=== PATIENT | male | born 1980 | race African-American/Black ===

== ENCOUNTER 2019-08-16 15:29 | Emergency (ER) | payer OTHER ==
[~2019-08-16] VITALS: Ht 175.3 cm; Wt 88.0 kg
[2019-08-16 15:54] LABS: Urine Bacteria NONE SEEN /hpf (None Seen); Urine Blood Negative /uL (Negative); Urine Mucus FEW (None Seen); Urine Specific Gravity 1.009 (1.001-1.035); Urine WBC <1 /hpf (0 - 3)
[2019-08-16 16:14] LABS: Basophils # (auto) 0 10 ^3/uL (0-0.2); Basophils % (auto) 0.5 % (0.0-2.0); Eosinophils # (auto) 0.2 10 ^3/uL (0-0.8); Lymphocytes # (auto) 2.1 10 ^3/uL (0.4-5.4); Monocytes # (auto) 0.5 10 ^3/uL (0-1.3); Neutrophils # (auto) 4.7 10 ^3/uL (1.6-8.6); Nucleated Red Blood Cells % 0.2 %; White Blood Cell 7.5 10^3/uL (4.4-10.8)
[2019-08-16 16:16] LABS: Eosinophils % (auto) 2.4 % (0.0-7.0); Hematocrit 45.9 % (41.0-53.0); Lymphocytes % (auto) 27.4 % (10.0-50.0); Mean Corpuscular Hemoglobin 26.4 pg (28.0-32.0); Mean Corpuscular Hgb Conc. 32.6 g/dL (32.0-36.0); Monocytes % (auto) 6.8 % (0.0-12.0); Neutrophils % (auto) 62.9 % (37.0-80.0); Platelet Count (auto) 263 10^3/uL (140-450); Red Blood Cells 5.67 10^6/uL (4.5-5.90); Red Cell Distribution Width 13.9 % (11.8-14.3)
[2019-08-16 16:29] LABS: Albumin 3.8 g/dL (3.4-5.0); Calcium 9.2 mg/dL (8.5-10.1); Potassium 3.7 mmol/L (3.5-5.1)
[2019-08-16 16:32] LABS: Bilirubin, Total 0.6 mg/dL (0.2-1.0); Total Protein 7.8 g/dL (6.4-8.2)
[2019-08-16 18:14] VITALS: BP 148/87
== END 2019-08-16 18:15 | disposition home or self-care (01) ==
LOC: ER 15:29
DX: K29.70 Gastritis, unspecified, without bleeding (principal); R91.1 Solitary pulmonary nodule; Z71.41 Alcohol abuse counseling and surveillance of alcoholic; Z88.0 Allergy status to penicillin; Z88.1 Allergy status to other antibiotic agents; Z88.8 Allergy status to other drugs, medicaments and biological substances
CPT/HCPCS: 36415; 74176; 80053; 81001; 85025

== ENCOUNTER 2019-09-23 18:38 | Emergency (ER) | payer OTHER ==
[~2019-09-23] VITALS: Ht 175.3 cm; Wt 93.0 kg
[2019-09-23 20:54] VITALS: BP 136/86
== END 2019-09-23 20:57 | disposition home or self-care (01) ==
LOC: ER 18:38
DX: R91.1 Solitary pulmonary nodule (principal); R10.9 Unspecified abdominal pain; K21.9 Gastro-esophageal reflux disease without esophagitis; E78.5 Hyperlipidemia, unspecified; I10 Essential (primary) hypertension
CPT/HCPCS: 74176

== ENCOUNTER 2019-11-12 06:23 | Emergency (ER) | payer OTHER ==
[~2019-11-12] VITALS: Ht 175.3 cm; Wt 90.7 kg
[2019-11-12 06:30] VITALS: BP 129/88
== END 2019-11-12 07:46 | disposition home or self-care (01) ==
LOC: ER 06:23
DX: M62.838 Other muscle spasm (principal); R51 Headache; K21.9 Gastro-esophageal reflux disease without esophagitis; E78.5 Hyperlipidemia, unspecified; I10 Essential (primary) hypertension

== ENCOUNTER 2019-12-24 19:12 | Emergency (ER) | payer OTHER ==
[~2019-12-24] VITALS: Ht 175.3 cm; Wt 89.4 kg
[2019-12-24 19:34] VITALS: BP 148/93
== END 2019-12-24 22:27 | disposition home or self-care (01) ==
LOC: ER 19:12
DX: S09.8XXA Other specified injuries of head, initial encounter (principal); R09.81 Nasal congestion; W11.XXXA Fall on and from ladder, initial encounter; Y93.89 Activity, other specified; Y92.89 Other specified places as the place of occurrence of the external cause; Y99.8 Other external cause status
CPT/HCPCS: 70450; 70486; 72125

== ENCOUNTER 2021-09-12 18:31 | Emergency (ER) | payer OTHER ==
[~2021-09-12] VITALS: Ht 175.3 cm; Wt 90.7 kg
[2021-09-12 19:37] VITALS: BP 130/80
[2021-09-12] MEDS ORDERED: ACETAMINOPHEN 325 MG TAB PO ONE (19:45)
[2021-09-12] MEDS ORDERED: IBUP600T28 PO (23:06)
== END 2021-09-12 23:57 | disposition home or self-care (01) ==
LOC: ER 18:31
DX: U07.1 COVID-19 (principal); I10 Essential (primary) hypertension; E11.9 Type 2 diabetes mellitus without complications; E78.5 Hyperlipidemia, unspecified; K21.9 Gastro-esophageal reflux disease without esophagitis; Z79.1 Long term (current) use of non-steroidal anti-inflammatories (NSAID); Z88.0 Allergy status to penicillin; Z88.8 Allergy status to other drugs, medicaments and biological substances
CPT/HCPCS: 36415; 87804

== ENCOUNTER 2022-11-13 13:58 | Emergency (ER) | payer MEDICAID, OTHER ==
[~2022-11-13] VITALS: Ht 175.3 cm; Wt 86.7 kg
[~2022-11-13 13:58] MED LIST: IBUP1TAB5 PO
[2022-11-13 15:05] VITALS: BP 138/98; PULSE 78; RESP 16; TEMP 98.1; O2SAT 96
[2022-11-13] MEDS ORDERED: METH-1181 PO (15:53)
[2022-11-13] MEDS ORDERED: IBUP-1454 PO (15:53)
== END 2022-11-13 16:01 | disposition home or self-care (01) ==
LOC: ER 13:58
DX: M79.10 Myalgia, unspecified site (principal); I10 Essential (primary) hypertension; E11.9 Type 2 diabetes mellitus without complications; E78.5 Hyperlipidemia, unspecified; K21.9 Gastro-esophageal reflux disease without esophagitis; F15.90 Other stimulant use, unspecified, uncomplicated; Z88.0 Allergy status to penicillin; Z88.1 Allergy status to other antibiotic agents; Z88.8 Allergy status to other drugs, medicaments and biological substances; Z79.1 Long term (current) use of non-steroidal anti-inflammatories (NSAID); Z79.899 Other long term (current) drug therapy

== ENCOUNTER 2023-01-14 22:24 | Emergency (ER) | payer OTHER ==
[~2023-01-14] VITALS: Ht 175.3 cm; Wt 92.5 kg
[~2023-01-14 22:24] MED LIST changes: +IBUP-1454 PO; +METH-1181 PO
[2023-01-15] MEDS ORDERED: IBUP-1456 PO (03:15)
[2023-01-15] MEDS ORDERED: KETOROLAC TROMETH 60MG/2ML VIAL IM ONE (03:15)
[2023-01-15 04:25] VITALS: BP 132/75; PULSE 76; RESP 18; TEMP 97.8; O2SAT 99
== END 2023-01-15 05:00 | disposition home or self-care (01) ==
LOC: ER 22:29
DX: S93.691A Other sprain of right foot, initial encounter (principal); I10 Essential (primary) hypertension; E78.5 Hyperlipidemia, unspecified; K21.9 Gastro-esophageal reflux disease without esophagitis; F15.90 Other stimulant use, unspecified, uncomplicated; Z87.891 Personal history of nicotine dependence; Z88.0 Allergy status to penicillin; Z88.8 Allergy status to other drugs, medicaments and biological substances; Z79.1 Long term (current) use of non-steroidal anti-inflammatories (NSAID); Z79.899 Other long term (current) drug therapy; X58.XXXA Exposure to other specified factors, initial encounter; Y93.89 Activity, other specified; Y92.89 Other specified places as the place of occurrence of the external cause; Y99.8 Other external cause status
CPT/HCPCS: 73630; 96372; 99283; J1885

== ENCOUNTER 2023-11-12 07:02 | Emergency (ER) | payer OTHER ==
[~2023-11-12] VITALS: Ht 175.3 cm; Wt 86.4 kg
[~2023-11-12 07:02] MED LIST changes: +IBUP-1456 PO
[2023-11-12 07:31] LABS: Urine Bacteria None Seen /hpf (None Seen)
[2023-11-12 07:43] LABS: Urine Blood Negative /uL (Negative); Urine Clarity Clear (Clear); Urine Color Light-Yellow (Yellow); Urine Protein, UAD Negative (Negative); Urine Specific Gravity 1.028 (1.001-1.035); Urine Urobilinogen Normal (Negative); Urine WBC 1 /hpf (0 - 3)
[2023-11-12 07:50] VITALS: BP 133/82; PULSE 63; RESP 17; TEMP 98.3; O2SAT 98
[2023-11-12] MEDS ORDERED: DOXY-286 PO (08:18)
[2023-11-12] MEDS: cefTRIAXone SOD 1,000 MG VL IM ONE (08:43)
[2023-11-13 12:06] LABS: Chlamydia Trachomatis, NAA Negative (Negative); Neisseria gonorrhoeae, NAA Negative (Negative)
== END 2023-11-12 08:47 | disposition home or self-care (01) ==
LOC: ER 07:02
DX: N34.2 Other urethritis (principal); I10 Essential (primary) hypertension; E78.5 Hyperlipidemia, unspecified; K21.9 Gastro-esophageal reflux disease without esophagitis; F15.90 Other stimulant use, unspecified, uncomplicated; Z87.891 Personal history of nicotine dependence; Z88.0 Allergy status to penicillin; Z88.8 Allergy status to other drugs, medicaments and biological substances; Z79.899 Other long term (current) drug therapy
CPT/HCPCS: 81001; 87491; 87591; 96372; 99283; J0696

== ENCOUNTER 2024-04-08 09:04 | Emergency (ER) | payer MEDICAID, OTHER ==
[~2024-04-08] VITALS: Ht 175.3 cm; Wt 90.7 kg
[~2024-04-08 09:04] MED LIST changes: +DOXY-286 PO
[2024-04-08 09:46] VITALS: BP 138/88; PULSE 88; RESP 18; TEMP 98.7; O2SAT 98
[2024-04-08 09:48] LABS: Urine Bacteria None Seen /hpf (None Seen)
[2024-04-08 10:17] LABS: Urine Blood Negative /uL (Negative); Urine Clarity Clear (Clear); Urine Color Light-Yellow (Yellow); Urine Mucus FEW (None Seen); Urine Protein, UAD Negative (Negative); Urine Specific Gravity 1.027 (1.001-1.035); Urine Squamous Epithelial Cell FEW /hpf (<5); Urine Urobilinogen Normal (Negative); Urine WBC <1 /hpf (0 - 3)
[2024-04-08] MEDS ORDERED: CYCL-839 PO (10:25)
[2024-04-08] MEDS ORDERED: IBUP1TAB5 PO (10:25)
[2024-04-08] MEDS ORDERED: DOXY-286 PO (10:25)
--- NOTE | 2024-04-08 10:27 | ED.PDOC ---
General HPI Comments 43-year-old male patient presents to the clinic for clear penile discharge for 2 weeks. Patient denies any redness or irritation to the penis. Patient reports that he has some burning with urination. Patient reports that he has had these symptoms previously and was treated in the emergency room. Patient also has complaints regarding pain to the right lateral portion of the neck and right upper back. Patient states the pain started 3 weeks ago. 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 Patient denies any significant injury or trauma. Patient reports that the pain comes and goes. Patient took a muscle relaxer which had to decrease the pain Chief Complaint: Penile Discharge Time Seen by MD: 09:31 Primary Care Provider: GABRIELLA Reviewed notes: Nurses Notes, Medications Allergies: Coded Allergies: Bacitracin (Verified Allergy, Severe, 08/16/19) Neomycin (Verified Allergy, Severe, 08/16/19) Penicillins (Verified Allergy, Severe, 08/16/19) Polymyxin B (Verified Allergy, Severe, 08/16/19) Home Meds Active Scripts Ibuprofen Micronized (Ibuprofen) 600 Mg Tab, 600 MG PO TID PRN for 30 Days, #90 TAB 0 Refills Prov:ARIELA SCHAFERANNE [employer] 04/08/24 Doxycycline Hyclate (DOXYCYCLINE HYCLATE) 100 Mg Tab, 1 TAB PO BID for 10 Days, #20 TAB 0 Refills Prov:HANHFRED [employer] 04/08/24 Cyclobenzaprine Hcl (Cyclobenzaprine Hcl) 10 Mg Tab, 10 MG PO DAILY PRN for 30 Days, #30 TAB 0 Refills Prov:FRED SCHAFER [employer] 04/08/24 Doxycycline Hyclate (DOXYCYCLINE HYCLATE) 100 Mg Tab, 1 TAB PO BID for 7 Days, #14 TAB 0 Refills Prov:PAVAN STACK NP 11/12/23 Ibuprofen (Ibuprofen) 800 Mg Tab, 1 TAB PO TID PRN, #30 TAB 0 Refills Prov:SUSIE HOFFMAN 01/15/23 Methocarbamol (Methocarbamol) 500 Mg Tab, 500 MG PO QID for 10 Days, #40 TAB 0 Refills Prov:PAVAN STACK NP 11/13/22 Ibuprofen (Ibuprofen) 600 Mg Tab, 600 MG PO TID for 14 Days, #42 TAB 0 Refills Prov:PAVAN STACK NP 11/13/22 Ibuprofen Micronized (Ibuprofen) 600 Mg Tab, 600 MG PO Q6HP for 10 Days, #40 TAB 0 Refills Prov:TETO GAMING MD 09/12/21 Mode of Arrival: Ambulatory Past Medical History PAST MEDICAL HISTORY: GERD, High Lipids, HTN Surgical History: Denies all surgeries Family History Family History: Reviewed,noncontributory to illness, Unknown Social History Smoker: Other Alcohol: Occasionally Drugs: Marijuana Lives In: Home Constitutional: denies: chills, diaphoresis, fatigue, fever, malaise, sweats, weakness, others EENTM: denies: blurred vision, double vision, ear bleeding, ear discharge, ear drainage, ear pain, ear ringing, eye pain, eye redness, hearing loss, mouth pain, mouth swelling, nasal discharge, nose bleeding, nose congestion, nose pain, photophobia, tearing, throat pain, throat swelling, voice changes, others Respiratory: denies: cough, hemoptysis, orthopnea, SOB at rest, shortness of breath, SOB with excertion, stridor, wheezing, others Cardiovascular: denies: chest pain, dizzy spells, diaphoresis, Dyspnea on exertion, edema, irregular heart beat, left arm pain, lightheadedness, palpitations, PND, syncope, others Gastrointestinal: denies: abdomen distended, abdominal pain, blood streaked bowels, constipated, diarrhea, dysphagia, difficulty swallowing, hematemesis, melena, nausea, poor appetite, poor fluid intake, rectal bleeding, rectal pain, vomiting, others Genitourinary: reports: penile discharge, penile sore Neurological: denies: dizziness, fainting, headache, left sided numbness, left sided weakness, numbness, paresthesia, pre-existing deficit, right sided numbness, right sided weakness, seizure, speech problems, tingling, tremors, weakness, others Musculoskeletal: reports: joint pain, muscle pain Integumetry: denies: bruises, change in color, change in hair/nails, dryness, laceration, lesions, lumps, rash, wounds, others Allergic/Immunocompromised: denies: Difficulty Healing, Frequent Infections, Hives, Itching, others Hematologic/Lymphatic: denies: anemia, blood clots, easy bleeding, easy bruising, swollen glands, others Endocrine: denies: excessive hunger, excessive sweating, excessive thirst, excessive urination, flushing, intolerance to cold, intolerance to heat, unexplained weight gain, unexplained weight loss, others Psychiatric: denies: anxiety, bipolar disorder, depression, hopeless, panic disorder, schizophrenia, sleepless, suicidal, others All Other Systems: Reviewed and Negative Physical Exam General Appearance: No Apparent Distress, Normal HEENT: Normal ENT Inspection, Pharynx Normal, TMs Normal Neck: Full Range of Motion, Non-Tender, Normal, Normal Inspection Respiratory: Chest Non-Tender, Lungs Clear, No Accessory Muscle Use, No Res piratory Distress, Normal Breath Sounds Cardiovascular: No Edema, No JVD, No Murmur, No Gallop, Normal Peripheral Pulses, Regular Rate/Rhythm Breast Exam: Deferred Gastrointestinal: No Organomegaly, Non Tender, No Pulsatile Mass, Normal Bowel Sounds, Soft Genitalia: Normal Pelvic: Deferred Rectal: Deferred Extremities: No calf tenderness, Normal capillary refill, Normal inspection, Normal range of motion, Non-tender, No pedal edema Musculoskeletal : Location: Right Extremity Location: Shoulder (Right shoulder pain tenderness radiating to the right upper back. Full range of motion.) Apperance: Normal, Tenderness: Mild Neurologic: Alert, hamper maker machine II-XII nml as Tested, No Motor Deficits, Normal Affect, Normal Mood, No Sensory Deficits Cerebellar Function: Normal Reflexes: Normal Skin: Dry, Normal Color, Warm Lymphatic: No Adenopathy Was a procedure done? Was a procedure done?: No Differential Diagnosis Kidney stone (Female): N/A Kidney stone (Male): N/A Penile/Scrotal: Epidiymitis, Prostatitis, STD, UTI Urinary Problem (Male): N/A Urinary Problem (Female): N/A X-Ray, Labs, Meds, VS Vital Signs Date Time Temp Pulse Resp B/P (MAP) Pulse Ox O2 Delivery O2 Flow Rate FiO2 04/08/24 09:46 88 18 98 Room Air 04/08/24 09:46 98.7 88 18 138/88 (105) 98 98.7 04/08/24 09:25 98.8 84 18 139/88 (105) 97 Lab Test 04/08/24 09:23 Range/Units Urine Color Light-yellow Yellow Urine Clarity Clear Clear Urine pH 6.0 5.0-9.0 Urine Specific [place] 1.027 1.001-1.035 Urine Protein Negative Negative Urine Ketones Negative Negative Urine Blood Negative Negative /uL Urine Nitrite Negative Negative Urine Bilirubin Negative Negative Urine Urobilinogen Normal Negative mg/dL Urine Leukocyte Esterase Negative Negative /uL Urine RBC <1 0 - 3 /hpf Urine WBC <1 0 - 3 /hpf Urine Squamous Epithelial Cells Few <5 /hpf Urine Bacteria None seen None Seen /hpf Urine Mucus Few None Seen Urine Glucose Normal Normal mg/dL Chlamydia trachomatis (MONO) Pending Neisseria gonorrhoeae (MONO) Pending Current Medications Medications (Trade) Dose Ordered Sig/Orlin Route Start Time Stop Time Status Last Admin Ceftriaxone Sodium (Rocephin) 1,000 mg ONCE ONCE IM 04/08/24 10:30 04/08/24 10:31 DC 04/08/24 10:37 X-Ray, Labs, Meds, VS Comment On re-evaluation patient has symptomatic improvement. Patient is stable for discharge at this time. All test results and diagnostic imaging have been interpreted. All diagnostic findings, discharge care, and education instruction provided to the patient. Follow-up with PCP in 2-3 days Patient verbalized understanding, discharge instructions and agrees to treatment plan Vital signs are stable Patient is ambulatory Patient advised of which symptoms necessitate a return visit to the emergency room. Patient to return emergency room for any new worsening symptoms. Patient is aware that the purpose of this visit is for an acute medical emergency requiring emergent stabilization. Chronic conditions, including malignancies have not been ruled out. Patient is instructed to follow up with PCP as directed for continued care and workup. If unable to arrange follow up, patient is to return to the emergency room for reassessment. Patient was given verbal and written discharge instructions and acknowledges understanding Time of 1ST Reevaluation: 10:46 Reevaluation 1ST: Unchanged Patient Education/Counseling: Diagnosis, Treatment, Prognosis Family Education/Counseling: No Family Present Departure 1 Departure Time of Disposition: 10:46 Impression: Primary Impression: Upper back pain on right side Additional Impressions: Concern about STD in male without diagnosis Penile discharge Disposition: 01 HOME / SELF CARE / HOMELESS Condition: Stable e-Prescriptions Ibuprofen Micronized (Ibuprofen) 600 Mg Tab 600 MG PO TID PRN for 30 Days, #90 TAB 0 Refills Prov: FRED SCHAFER [employer] 04/08/24 Doxycycline Hyclate (DOXYCYCLINE HYCLATE) 100 Mg Tab 1 TAB PO BID for 10 Days, #20 TAB 0 Refills Prov: FRED SCHAFER [facility] 04/08/24 Cyclobenzaprine Hcl (Cyclobenzaprine Hcl) 10 Mg Tab 10 MG PO DAILY PRN for 30 Days, #30 TAB 0 Refills Prov: FRED SCHAFER [facility] 04/08/24 Discharged With: Self Critical Care Note Critical Care Time?: No Stability Stability form required: No Heart Score Heart Score: Heart Score Response (Comments) Value History N/A 0 EKG N/A 0 Age N/A 0 Risk Factors N/A 0 Troponin N/A 0 Total 0 FRED SCHAFER [facility] Apr 08, 2024 10:27
[2024-04-08] MEDS: cefTRIAXone SOD 1,000 MG VL IM ONE (10:37)
[2024-04-09 22:06] LABS: Chlamydia Trachomatis, NAA Negative (Negative); Neisseria gonorrhoeae, NAA Negative (Negative)
== END 2024-04-08 10:52 | disposition home or self-care (01) ==
LOC: ER 09:04
DX: R36.9 Urethral discharge, unspecified (principal); M54.6 Pain in thoracic spine; M54.2 Cervicalgia; R30.9 Painful micturition, unspecified; K21.9 Gastro-esophageal reflux disease without esophagitis; I10 Essential (primary) hypertension; F17.200 Nicotine dependence, unspecified, uncomplicated; Z20.2 Contact with and (suspected) exposure to infections with a predominantly sexual mode of transmission; Z79.1 Long term (current) use of non-steroidal anti-inflammatories (NSAID); Z88.0 Allergy status to penicillin
CPT/HCPCS: 81001; 87491; 87591; 96372; 99283; J0696

== ENCOUNTER 2024-09-26 01:35 | Emergency (ER) | payer OTHER ==
[~2024-09-26] VITALS: Ht 175.3 cm; Wt 88.0 kg
[~2024-09-26 01:35] MED LIST changes: +CYCL-839 PO
[2024-09-26 02:37] LABS: Hematocrit 49.7 % (41.0-53.0); Hemoglobin 16.6 g/dL (13.5-17.5); Mean Corpuscular Hemoglobin 27.1 pg (28.0-32.0); Mean Corpuscular Volume 81.1 fL (80.0-100.0); Nucleated Red Blood Cells % 0.0 %
[2024-09-26 02:49] LABS: Alanine Aminotransferase 22 U/L (7-40); Alkaline Phosphatase 69 U/L (46-116); Anion Gap 11 (5-15); BUN/Creatinine Ratio 9.3 (10.0-20.0); Bilirubin, Total 0.7 mg/dL (0.2-1.0); Blood Urea Nitrogen 12 mg/dL (9-23); Calcium 9.7 mg/dL (8.7-10.4); Carbon Dioxide 25 mmol/L (20-31); Chloride 99 mmol/L (98-107); Potassium 3.7 mmol/L (3.5-5.1)
[2024-09-26 02:59] LABS: Albumin 5.1 g/dL (3.2-4.8); Glucose 130 mg/dL (74-106); Sodium 135 mmol/L (136-145); Total Protein 8.3 g/dL (5.7-8.2)
--- NOTE | 2024-09-26 03:39 | DVH ---
Examination: [facility] CLINICAL INDICATION: LEFT TONSILLAR ENLARGEMENT IN PAIN DIREAS;Reason for Exam: Ambulatory;Ambulator y;Modes of Transportation DITRANS;How is patient transported? COMPARISON: None. CONTRAST USED: None. TECHNIQUE: Trans axial Helical CT Scan of the neck has been performed without and with contrast unde r quiet breathing. CT scan done according to ALARA (As Low as Reasonably Achievable). Multiplanar reconstructions were obtained. FINDINGS: Naso and Oropharyngeal Air Space: The naso and oropharyngeal air space is normal. Eustachian Tube, Torus Tubarius, and Fossa of Rosenm�ller: The eustachian tube opening, torus tuba rius, and fossa of Rosenm�ller are normal and do not show any mass Muscles: The pterygoid muscles, masseter, and temporalis muscles are normal. Parapharyngeal Space: The parapharyngeal space shows normal position, density, and fat content. Vessels: The carotid and jugular vessels show normal contrast opacification and position. Parotid Glands: Both parotid glands show normal density. Floor of Mouth: The muscles of the floor of mouth are normal. Submandibular Glands: Both submandibular glands are normal. Larynx: The larynx shows normal vocal cords. No evidence of any supraglottic or intragalactic mass l esion. Paralaryngeal Space, Pyriform Fossa, Vallecula, and Epiglottis: These structures are normal. Post Cricoid Region: No obvious mass is noted. Thyroid Gland: The thyroid gland is bulky with the right lobe measuring 5.3 x 3.1 x 1.6 cm (volume a pproximately 8.2 mL) and the left lobe measuring 5.0 x 2.7 x 1.0 cm (volume approximately 7.1 mL). T he isthmus measures 7 mm in thickness. Sternocleidomastoid Muscles: Both sternocleidomastoid muscles are normal. Nasal Septum: There is minimal deviation of the nasal septum to the right. Lymph Nodes: Few sub centimeter sized bilateral level IB, II, III, IV, and V lymph nodes are noted, largest measuring 14.5 x 8.3 mm at left level II and 18.4 x 14.8 mm at right level II. Suggest post- contrast study for further evaluation. Tonsils: Mild enlargement of bilateral palatine tonsils is seen; clinical correlation is suggested t o rule out inflammatory etiology. Lungs: The visualized upper sections of lungs show emphysematous changes with presence of subpleural blebs/bullae. Spine: Degenerative changes are evident in the visualized portions of the spine. Study Quality: The study is suboptimal due to artifacts from metallic braces/implant. IMPRESSION: 1. Bulky thyroid gland with mild enlargement of bilateral palatine tonsils; clinical correlation is recommended to exclude inflammatory causes. 2. Bilateral cervical lymphadenopathy with largest nodes, measuring up to 18.4 x 14.8 mm at right le gianluca II and 14.5 x 8.3 mm at left level II. Post-contrast study is advised for further evaluation. Electronically Signed 09/26/2024 03:37 Anton Sharpe
[2024-09-26] MEDS: cefTRIAXone 1GM/50ML D5W 50 ML IV ONE (03:54)
[2024-09-26] MEDS: KETOROLAC TROMETH 30 MG/ML 1ML VIAL IV ONE (03:55)
[2024-09-26] MEDS: IOHEXOL 300 MG/ML 100ML BOTTLE IJ ONE (04:35)
[2024-09-26 05:07] VITALS: BP 137/102; PULSE 87; RESP 12; TEMP 98.7; O2SAT 98
--- NOTE | 2024-09-26 05:10 | DVH ---
INDICATION: CERVICAL ADENOPATHY REPEAT ADVISED BY RADIOLOGIST Exam Date: 09/26/2024 04:08 AM COMPARISON: None TECHNIQUE: CT of the neck with intravenous contrast. Radiation Dose Information: CTDI volume is 25 mGy. Dose-length product is 250 mGy*cm CLINICAL INDICATION: LEFT TONSILLAR ENLARGEMENT IN PAIN DIREAS;Reason for Exam: Ambulatory;Ambulatory;Modes of Transportation DITRANS;How is patient transported COMPARISON: None. CONTRAST USED: None. TECHNIQUE: Trans axial Helical CT Scan of the neck has been performed without and with contrast under quiet breathing. CT scan done according to ALARA (As Low as Reasonably Achievable). Multiplanar reconstructions were obtained. FINDINGS: Naso and Oropharyngeal Air Space: The naso and oropharyngeal air space is normal. Eustachian Tube, Torus Tubarius, and Fossa of Rosenm ller: The eustachian tube opening, torus tubarius, and fossa of Rosenm ller are normal and do not show any mass Muscles: The pterygoid muscles, masseter, and temporalis muscles are normal. Parapharyngeal Space: The parapharyngeal space shows normal position, density, and fat content. Vessels: The carotid and jugular vessels show normal contrast opacification and position. Parotid Glands: Both parotid glands show normal density. Floor of Mouth: The muscles of the floor of mouth are normal. Submandibular Glands: Both submandibular glands are normal. Larynx: The larynx shows normal vocal cords. No evidence of any supraglottic or intragalactic mass lesion. Paralaryngeal Space, Pyriform Fossa, Vallecula, and Epiglottis: These structures are normal. Post Cricoid Region: No obvious mass is noted. Thyroid Gland: The thyroid gland is bulky with the right lobe measuring 5.3 x 3.1 x 1.6 cm (volume approximately 8.2 mL) and the left lobe measuring 5.0 x 2.7 x 1.0 cm (volume approximately 7.1 mL). The isthmus measures 7 mm in thickness. Sternocleidomastoid Muscles: Both sternocleidomastoid muscles are normal. Nasal Septum: There is minimal deviation of the nasal septum to the right. Lymph Nodes: Few sub centimeter sized bilateral level IB, II, III, IV, and V lymph nodes are noted, largest measuring 14.5 x 8.3 mm at left level II and 18.4 x 14.8 mm at right level II. Suggest post-contrast study for further evaluation. Tonsils: Mild enlargement of bilateral palatine tonsils is seen; clinical correlation is suggested to rule out inflammatory etiology. Lungs: The visualized upper sections of lungs show emphysematous changes with presence of subpleural blebs/bullae. Spine: Degenerative changes are evident in the visualized portions of the spine. Study Quality: The study is suboptimal due to artifacts from metallic braces/implant. IMPRESSION: 1. Bulky thyroid gland with mild enlargement of bilateral palatine tonsils; clinical correlation is recommended to exclude inflammatory causes. 2. Bilateral cervical lymphadenopathy with largest nodes, measuring up to 18.4 x 14.8 mm at right level II and 14.5 x 8.3 mm at left level II. Post-contrast study is advised for further evaluation.
--- NOTE | 2024-09-26 05:30 | ED.PDOC ---
Eye-HPI HPI Comments Pt presents to the ER with C/O sore throat x5 days. Pt reports swelling and redness to tonsils with associated difficulty swallowing. PATIENT NOTES PAIN IS MOSTLY ON THE LEFT SIDE OF HIS THROAT Pt reports using Ibuprofen 600mg with no relief in pain. Pt noted to have redness and swelling to tonsils. RR even and unlabored, SPO2 95% on RA. Pt febrile 100.2F oral, provider Danilo notified and assessing patient at this time Chief Complaint: Sore Throat Time Seen by MD: 01:41 Primary Care Provider: GABRIELLA Reviewed Notes: Nurses Notes, Medications, Allergies Allergies: Coded Allergies: Bacitracin (Verified Allergy, Severe, 08/16/19) Neomycin (Verified Allergy, Severe, 08/16/19) Penicillins (Verified Allergy, Severe, 08/16/19) Polymyxin B (Verified Allergy, Severe, 08/16/19) Home Meds Active Scripts Clindamycin Hcl (Clindamycin Hcl) 300 Mg Cap, 300 MG PO QID for 10 Days, #40 CAP Prov:JOSE R RODRIGUEZ [employer] 09/26/24 Ibuprofen Micronized (Ibuprofen) 600 Mg Tab, 600 MG PO TID PRN for 30 Days, #90 TAB 0 Refills Prov:FRED SCHAFER [facility] 04/08/24 Doxycycline Hyclate (DOXYCYCLINE HYCLATE) 100 Mg Tab, 1 TAB PO BID for 10 Days, #20 TAB 0 Refills Prov:FRED SCHAFER [facility] 04/08/24 Cyclobenzaprine Hcl (Cyclobenzaprine Hcl) 10 Mg Tab, 10 MG PO DAILY PRN for 30 Days, #30 TAB 0 Refills Prov:FRED SCHAFER [facility] 04/08/24 Doxycycline Hyclate (DOXYCYCLINE HYCLATE) 100 Mg Tab, 1 TAB PO BID for 7 Days, #14 TAB 0 Refills Prov:PAVAN STACK ASSISTANT ACCOUNTING MANAGER 11/12/23 Ibuprofen (Ibuprofen) 800 Mg Tab, 1 TAB PO TID PRN, #30 TAB 0 Refills Prov:SUSIE HOFFMAN 01/15/23 Methocarbamol (Methocarbamol) 500 Mg Tab, 500 MG PO QID for 10 Days, #40 TAB 0 Refills Prov:PAVAN STACK NP 11/13/22 Ibuprofen (Ibuprofen) 600 Mg Tab, 600 MG PO TID for 14 Days, #42 TAB 0 Refills Prov:PAVAN STACK Evaristo LIM 11/13/22 Ibuprofen Micronized (Ibuprofen) 600 Mg Tab, 600 MG PO Q6HP for 10 Days, #40 TAB 0 Refills Prov:TETO GAMING MD 09/12/21 Information Source: Patient Mode of Arrival: Ambulatory Past Medical History PAST MEDICAL HISTORY: GERD, High Lipids, HTN Surgical History: Denies all surgeries Family History Family History: Reviewed,noncontributory to illness, Unknown Social History Smoker: Other Alcohol: Occasionally Drugs: Marijuana Lives In: Home Constitutional: reports: fever; denies: chills, diaphoresis, fatigue, malaise, sweats, weakness, others EENTM: reports: throat pain, throat swelling; denies: blurred vision, double vision, ear bleeding, ear discharge, ear drainage, ear pain, ear ringing, eye pain, eye redness, hearing loss, mouth pain, mouth swelling, nasal discharge, nose bleeding, nose congestion, nose pain, photophobia, tearing, voice changes, others Respiratory: denies: cough, hemoptysis, orthopnea, SOB at rest, shortness of breath, SOB with excertion, stridor, wheezing, others Cardiovascular: denies: chest pain, dizzy spells, diaphoresis, Dyspnea on exertion, edema, irregular heart beat, left arm pain, lightheadedness, palpitations, PND, syncope, others Gastrointestinal: denies: abdomen distended, abdominal pain, blood streaked bowels, constipated, diarrhea, dysphagia, difficulty swallowing, hematemesis, melena, nausea, poor appetite, poor fluid intake, rectal bleeding, rectal pain, vomiting, others Genitourinary: denies: burning, dysuria, flank pain, frequency, hematuria, incontinence, penile discharge, penile sore, pain, testicle pain, testicle swelling, urgency, others Neurological: denies: dizziness, fainting, headache, left sided numbness, left sided weakness, numbness, paresthesia, pre-existing deficit, right sided numbness, right sided weakness, seizure, speech problems, tingling, tremors, weakness, others Musculoskeletal: denies: back pain, gout, joint pain, joint swelling, muscle pain, muscle stiffness, neck pain, others Integumetry: denies: bruises, change in color, change in hair/nails, dryness, laceration, lesions, lumps, rash, wounds, others Allergic/Immunocompromised: denies: Difficulty Healing, Frequent Infections, Hives, Itching, others Hematologic/Lymphatic: denies: anemia, blood clots, easy bleeding, easy bruising, swollen glands, others Endocrine: denies: excessive hunger, excessive sweating, excessive thirst, excessive urination, flushing, intolerance to cold, intolerance to heat, unexplained weight gain, unexplained weight loss, others Psychiatric: denies: anxiety, bipolar disorder, depression, hopeless, panic disorder, schizophrenia, sleepless, suicidal, others Physical Exam General Appearance: No Apparent Distress, Normal HEENT: Pharyngeal Erythema, TMs Normal, Other (TONSILS GRADE 3 WITHOUT EXUDATE MODERATE ERYTHEMA) Neck: Full Range of Motion, Non-Tender, Normal, Normal Inspection Respiratory: Chest Non-Tender, Lungs Clear, No Accessory Muscle Use, No Respiratory Distress, Normal Breath Sounds Cardiovascular: No Edema, No JVD, No Murmur, No Gallop, Normal Peripheral Pulses, Regular Rate/Rhythm Breast Exam: Deferred Gastrointestinal: No Organomegaly, Non Tender, No Pulsatile Mass, Normal Bowel Sounds, Soft Genitalia: Deferred Pelvic: Deferred Rectal: Deferred Extremities: No calf tenderness, Normal capillary refill, Normal inspection, Normal range of motion, Non-tender, No pedal edema Musculoskeletal : Apperance: Normal Neurologic: Alert, head packager II-XII nml as Tested, No Motor Deficits, Normal Affect, Normal Mood, No Sensory Deficits Cerebellar Function: Normal Reflexes: Normal Skin: Dry, Normal Color, Warm Lymphatic: No Adenopathy Was a procedure done? Was a procedure done?: No EENT DIFF Eye: N/A Sore Throat: Epiglottitis, Gibran's Angina, Peritonsillar Abscess, Peritonsillar Cellulitis, Pharyngitis, Streptococcal, Viral Pharyngitis X-Ray, Labs, Meds, VS Vital Signs Date Time Temp Pulse Resp B/P (MAP) Pulse Ox O2 Delivery O2 Flow Rate FiO2 09/26/24 05:07 98.7 87 12 137/102 (114) 98 98.7 09/26/24 05:00 Room Air* 0 21 09/26/24 02:10 100.2 107 18 142/107 (119) 95 100.2 Lab Test 09/26/24 03:02 09/26/24 02:18 Range/Units Lactic Acid Level 1.2 0.4-2.0 mmol/L White Blood Count 13.1 H 4.4-10.8 10^3/uL Red Blood Count 6.13 H 4.5-5.90 10^6/uL Hemoglobin 16.6 13.5-17.5 g/dL Hematocrit 49.7 41.0-53.0 % Mean Corpuscular Volume 81.1 80.0-100.0 fL Mean Corpuscular Hemoglobin 27.1 L 28.0-32.0 pg Mean Corpuscular Hemoglobin Concent 33.4 32.0-36.0 g/dL Red Cell Distribution Width 13.6 11.8-14.3 % Platelet Count 243 140-450 10^3/uL Mean Platelet Volume 7.9 6.9-10.8 fL Neutrophils (%) (Auto) 77.2 37.0-80.0 % Lymphocytes (%) (Auto) 11.6 10.0-50.0 % Monocytes (%) (Auto) 10.8 0.0-12.0 % Eosinophils (%) (Auto) 0.2 0.0-7.0 % Basophils (%) (Auto) 0.2 0.0-2.0 % Neutrophils # (Auto) 10.1 H 1.6-8.6 10 ^3/uL Lymphocytes # (Auto) 1.5 0.4-5.4 10 ^3/uL Monocytes # (Auto) 1.4 H 0-1.3 10 ^3/uL Eosinophils # (Auto) 0 0-0.8 10 ^3/uL Basophils # (Auto) 0 0-0.2 10 ^3/uL Nucleated Red Blood Cells 0.0 % Sodium Level 135 L 136-145 mmol/L Potassium Level 3.7 3.5-5.1 mmol/L Chloride Level 99 98-107 mmol/L Carbon Dioxide Level 25 20-31 mmol/L Anion Gap 11 5-15 Blood Urea Nitrogen 12 9-23 mg/dL Creatinine 1.29 0.700-1.30 mg/dL Glomerular Filtration Rate Calc 70 >90 mL/min BUN/Creatinine Ratio 9.3 L 10.0-20.0 Serum Glucose 130 H 74-106 mg/dL Calcium Level 9.7 8.7-10.4 mg/dL Total Bilirubin 0.7 0.2-1.0 mg/dL Aspartate Amino Transferase (AST) 20 13-40 U/L Alanine Aminotransferase (ALT) 22 7-40 U/L Alkaline Phosphatase 69 46-116 U/L Total Protein 8.3 H 5.7-8.2 g/dL Albumin 5.1 H 3.2-4.8 g/dL Thyroid Stimulating Hormone (TSH) 1.82 0.55-4.78 uIU/mL Current Medications Medications (Trade) Dose Ordered Sig/Orlin Route Start Time Stop Time Status Last Admin Dexamethasone Sodium Phosphate (Decadron Injection) 10 mg ONCE ONCE IV 09/26/24 02:15 09/26/24 02:18 DC 09/26/24 03:55 Ketorolac Tromethamine (Toradol Injection) 30 mg ONCE ONCE IV 09/26/24 02:15 09/26/24 02:18 DC 09/26/24 03:55 Ceftriaxone Sodium 50 ml @ 100 mls/hr ONCE ONCE IV 09/26/24 02:15 09/26/24 02:44 DC 09/26/24 03:54 X-Ray, Labs, Meds, VS Comment REPEAT CT WITH CONTRAST: ADDENDUM # 1 15 mm left paritonsilar abscess. This exam was done with IV contrast. 2. Bilateral cervical lymphadenopathy with largest nodes, measuring up to 18.4 x 14.8 mm at right level II and 14.5 x 8.3 mm at left level II. PATIENT WAS GIVEN DECADRON 10 MG IV AND ROCEPHIN 1 G IV HE NOTES SIGNIFICANT IMPROVEMENT IN SYMPTOMS ABLE TO SWALLOW NOTES NO PAIN HE IS REQUESTING DISCHARGE AT THIS TIME. SPOKE WITH RADIOLOGIST SOFY TO REREAD NO MENTION OF ABSCESS ADDENDUM SHOWS SMALL 15 MM LEFT PERITONSILLAR ABSCESS. SCRIPT TRIAL OF CLINDAMYCIN 4 TIMES DAILY TIMES 10 DAYS. ADVISED PATIENT TO FOLLOW UP WITH ENT JONO GARCIA WITHIN 24-48 HOURS PATIENT INDICATED UNDERSTANDING. ADVISED PATIENT ON ER RETURN PRECAUTIONS INCREASING PAIN, SWELLING DIFFICULTY SWALLOWING, SHORTNESS OF BREATH OR ANY CONCERNING SYMPTOMS. ADVISED TO REST INCREASE P.O. FLUIDS WITH ELECTROLYTES [id number] TYLENOL OR MOTRIN NEEDED FOR PAIN FEVER PER LABELED DOSING INSTRUCTIONS. Time of 1ST Reevaluation: 01:41 Reevaluation 1ST: Unchanged Time of 2ND Reevaluation: 05:00 Reevaluation 2ND: Improved Patient Education/Counseling: Diagnosis, Treatment, Prognosis, Need For Follow Up Family Education/Counseling: No Family Present SEPSIS Sepsis Screen Date sepsis recognized/suspect: Sep 26, 2024 Time Sepsis recognized/suspect: 209 Recent Procedure: No On Antibiotic Therapy: No Respiratory Rate >20: No Heart Rate >90: No Temp<36 C (96.8 F) or >38.3 C: No SBP <90 or MAP <65 mmHG: No New Acute Mental Status Change: No Is the patient on CPAP, BIPAP,: No Physician Orders Neck Without Contrast (09/26/24 02:11) Heplock Iv (09/26/24 ) Blood Culture (09/26/24 02:59) Neck With Contrast Soft (09/26/24 04:01) Vital Signs Date Time Temp Pulse Resp B/P (MAP) Pulse Ox O2 Delivery O2 Flow Rate FiO2 09/26/24 05:07 98.7 87 12 137/102 (114) 98 98.7 09/26/24 05:00 Room Air* 0 21 09/26/24 02:10 100.2 107 18 142/107 (119) 95 100.2 Laboratory Tests Test 09/26/24 02:18 09/26/24 03:02 White Blood Count 13.1 10^3/uL (4.4-10.8) H Lactic Acid Level 1.2 mmol/L (0.4-2.0) Medications Medications Dose Ordered Sig/Orlin Route Start Time Stop Time Status Last Admin Dose Admin Ceftriaxone Sodium 50 ml @ 100 mls/hr ONCE ONCE IV 09/26/24 02:15 09/26/24 02:44 DC 09/26/24 03:54 Dexamethasone Sodium Phosphate 10 mg ONCE ONCE IV 09/26/24 02:15 09/26/24 02:18 DC 09/26/24 03:55 Ketorolac Tromethamine 30 mg ONCE ONCE IV 09/26/24 02:15 09/26/24 02:18 DC 09/26/24 03:55 Departure 1 Departure Time of Disposition: 05:37 Impression: Primary Impression: Peritonsillar abscess Disposition: 01 HOME / SELF CARE / HOMELESS Condition: Stable e-Prescriptions Clindamycin Hcl (Clindamycin Hcl) 300 Mg Cap 300 MG PO QID for 10 Days, #40 CAP Prov: JOSE R RODRIGUEZ 09/26/24 Discharged With: Self Critical Care Note Critical Care Time?: No Stability Stability form required: JOSE R West Sep 26, 2024 05:30
[2024-09-26] MEDS ORDERED: CLIN1CAP70 PO (05:45)
== END 2024-09-26 05:51 | disposition home or self-care (01) ==
LOC: ER 01:35
DX: J36 Peritonsillar abscess (principal); F10.90 Alcohol use, unspecified, uncomplicated; F12.90 Cannabis use, unspecified, uncomplicated; F17.200 Nicotine dependence, unspecified, uncomplicated; I10 Essential (primary) hypertension; E78.5 Hyperlipidemia, unspecified; K21.9 Gastro-esophageal reflux disease without esophagitis; Z88.0 Allergy status to penicillin; Z79.1 Long term (current) use of non-steroidal anti-inflammatories (NSAID); Z79.899 Other long term (current) drug therapy; Z88.1 Allergy status to other antibiotic agents; Y90.9 Presence of alcohol in blood, level not specified
CPT/HCPCS: 36415; 70490; 70491; 80053; 83605; 84443; 85025; 87040; 96365; 96375; 99285; J0696; J1100; J1885; Q9967